=== PATIENT | female | born 1980 | race American Indian/Alaskan Native ===

== ENCOUNTER 2017-02-09 11:20 | Emergency (ER) | payer SELFPAY ==
[2017-02-09] MEDS ORDERED: REGLAN IV ONE (14:05)
[2017-02-09] MEDS ORDERED: DECADRON IV ONE (14:05)
[2017-02-09] MEDS ORDERED: BENADRYL IV ONE (14:05)
[2017-02-09] MEDS ORDERED: TYLENOL PO ONE (14:05)
[2017-02-09] MEDS ORDERED: NACL 0.9% 1000 ML 1,000 ML IV ONE (14:07)
--- NOTE | 2017-02-09 14:12 | Emergency Department Report ---
ED Headache HPI - General Chief Complaint: Headache Stated Complaint: HEADACHE/FOOT PAIN/BLISTERS Time Seen by Provider: 02/09/17 14:04 Source: patient Exam Limitations: no limitations - History of Present Illness Initial Comments: " I have tension headache for 1 week, I have had them for past [address] " Quality: moderate, pressure, sharp Head Injury Location: other (no head injury ) Recent Head Trauma: no recent headache/trauma Modifying Factors: improves with: movement, other (light , noise) Associated Symptoms: other (nausea no vomiting). denies: confusion, fatigue, facial pain, fever/chills, flushing, loss of consciousness, nasal congestion, nasal drainage, numbness in legs/feet, rash, seizures, sinus infection, stiff neck, vision changes, weakness Allergies/Adverse Reactions: Allergies latex Allergy (Verified 02/09/17 12:13) Rash tramadol Allergy (Verified 02/09/17 12:13) Shortness of Breath Home Medications: Ambulatory Orders Fluticasone [Flonase] 1 spray NS QDAY #1 bottle 10/20/16 Ibuprofen [Motrin] 600 mg PO Q8H PRN #15 tablet 10/20/16 Loratadine [Claritin] 10 mg PO DAILY #14 tablet 10/20/16 Nitrofurantoin Baldwin/M-Cryst [Macrobid CAP] 100 mg PO Q12HR #14 capsule 10/20/16 Acetaminophen [Acetaminophen TAB] 1,000 mg PO Q6HR PRN #60 tablet 02/09/17 Metoclopramide [Reglan] 10 mg PO TID PRN #30 tab 02/09/17 diphenhydrAMINE [Benadryl CAP] 25 mg PO Q6HR PRN #30 capsule 02/09/17 ED Review of Systems ROS: Stated complaint: HEADACHE/FOOT PAIN/BLISTERS Other details as noted in HPI Constitutional: denies: chills, fever Eyes: eye pain (bilat eye pain intiated by headache ). denies: eye discharge, vision change ENT: denies: ear pain, throat pain Respiratory: denies: cough, shortness of breath, wheezing Cardiovascular: denies: chest pain, palpitations Endocrine: no symptoms reported Gastrointestinal: nausea. denies: abdominal pain, vomiting, diarrhea, constipation, hematemesis, melena, hematochezia Genitourinary: denies: urgency, dysuria, discharge Musculoskeletal: denies: back pain, joint swelling, arthralgia Skin: denies: rash, lesions Neurological: headache Psychiatric: denies: anxiety, depression, auditory hallucinations, visual hallucinations, homicidal thoughts, suicidal thoughts Hematological/Lymphatic: denies: easy bleeding, easy bruising ED Past Medical Hx - Past Medical History Hx Hypertension: Yes (BORDERLINE) Hx Diabetes: Yes (BORDERLINE) Hx Asthma: Yes Additional medical history: PERICARDITITS 2002/ECZEMA - Surgical History Additional Surgical History: C SECTION. HERNIA X 2 - Social History Smoking Status: Current Every Day Smoker Substance Use Type: Marijuana - Medications Home Medications: Home Medications Medication Instructions Recorded Confirmed Last Taken Type Fluticasone [Flonase] 1 spray NS QDAY #1 bottle 10/20/16 Unknown Rx Ibuprofen [Motrin] 600 mg PO Q8H PRN #15 tablet 10/20/16 Unknown Rx Loratadine [Claritin] 10 mg PO DAILY #14 tablet 10/20/16 Unknown Rx Nitrofurantoin Baldwin/M-Cryst 100 mg PO Q12HR #14 capsule 10/20/16 Unknown Rx [Macrobid CAP] Acetaminophen [Acetaminophen TAB] 1,000 mg PO Q6HR PRN #60 tablet 02/09/17 Unknown Rx Metoclopramide [Reglan] 10 mg PO TID PRN #30 tab 02/09/17 Unknown Rx diphenhydrAMINE [Benadryl CAP] 25 mg PO Q6HR PRN #30 capsule 02/09/17 Unknown Rx ED Physical Exam - General Limitations: No Limitations General appearance: alert, in no apparent distress - Head Head exam: Present: atraumatic, normocephalic, normal inspection - Eye Eye exam: Present: normal appearance, PERRL, EOMI. Absent: scleral icterus, conjunctival injection, nystagmus, periorbital swelling, periorbital tenderness Pupils: Present: normal accommodation - ENT ENT exam: Present: normal exam, mucous membranes moist. Absent: TM's normal bilaterally, normal external ear exam - Neck Neck exam: Present: full ROM. Absent: tenderness, lymphadenopathy, thyromegaly - Respiratory Respiratory exam: Present: normal lung sounds bilaterally. Absent: respiratory distress, wheezes, stridor, chest wall tenderness - Cardiovascular Cardiovascular Exam: Present: regular rate, normal rhythm. Absent: systolic murmur, diastolic murmur, rubs, gallop - GI/Abdominal GI/Abdominal exam: Present: soft, normal bowel sounds - Rectal Rectal exam: Present: deferred - Extremities Exam Extremities exam: Present: normal inspection - Back Exam Back exam: Present: normal inspection - Neurological Exam Neurological exam: Present: alert, oriented X3, CN II-XII intact, normal gait, reflexes normal. Absent: motor sensory deficit - Psychiatric Psychiatric exam: Present: normal affect, normal mood - Skin Skin exam: Present: warm, dry, intact, normal color. Absent: rash ED Course Vital Signs 02/09/17 12:06 Temperature 98.2 F Pulse Rate 97 H Respiratory 17 Rate Blood Pressure 149/95 O2 Sat by Pulse 100 Oximetry - Reevaluation(s) Reevaluation #1: headache improved per patient to 2/10 from 02/26 pt denies n/v no photophobia at this time discussed plan , dc rx tylenol, benadryl and reglan, prn headache , follow up with primary care and neurology if headaches persists pt verbalized understanding and agreement with discharge plan. 02/09/17 15:18 ED Medical Decision Making - Medical Decision Making pt is a aaf with hx of tension headaches for past 11 yrs , usually relieved with nsaids or tylenol pt how ever this headache for past 7 days same location same intensity same associated symptoms or nausea pressure radiating to bilat eyes no change in vision no , note photophobia and noise intelerance as with other headache, pt denies vomiting no fever no chills neck stiffiness , x headache and photophobia CNII-XII grossly intact ENT: tms clear bilat, sinus no pain bilat, nose no obstruction no polyps , pharnyx no erythema no exudate no lesions , airway patent, lungs clear bilat no wheezing no batista, cv: S1 and S2 no MRG, pt denies new stressors, secondary complaint for right foot pain blisters x 1 month exam: mild erythema small blister x 2 less than 1 cm, pt endorses "my shoes rub against them all the time" pt give foot care instructions including wash and dry, antibiotic oint, bandaid or dressing, pt advise to follow up with podiatry for evaluation, Plan for headache: NS bolus, benadryl, tylenol, decadron, reglan, if symptoms resolved will dc with nsaids, reglan and follow up with primary care , pt verbalized agreement and understanding with tx and discharge plan. Critical care attestation.: If time is entered above; I have spent that time in minutes in the direct care of this critically ill patient, excluding procedure time. ED Disposition Clinical Impression: Tension headache, chronic Qualifiers: Intractability: intractable Qualified Code(s): G44.221 - Chronic tension-type headache, intractable Disposition: DC-01 TO HOME OR SELFCARE Is pt being admited?: No Does the pt Need Aspirin: No Condition: Good Instructions: Tension Headache (ED), Acute Headache (ED) Additional Instructions: follow up with Dr. Adam Barcenas [phone] Neurology Prescriptions: Acetaminophen [Acetaminophen TAB] 1,000 mg PO Q6HR PRN #60 tablet PRN Reason: Pain , Severe (7-10) diphenhydrAMINE [Benadryl CAP] 25 mg PO Q6HR PRN #30 capsule PRN Reason: Pain , Severe (7-10) Metoclopramide [Reglan] 10 mg PO TID PRN #30 tab PRN Reason: Pain , Severe (7-10) Referrals: PRIMARY CARE, [Primary Care Provider] - 3-5 Days Forms: Work/School Release Form(ED) Time of Disposition: 15:31
[2017-02-09 16:53] VITALS: BP 117/79
== END 2017-02-09 16:52 | disposition home or self-care (01) ==
LOC: ED 11:20
DX: G44.221 Chronic tension-type headache, intractable (principal); J45.909 Unspecified asthma, uncomplicated; F17.200 Nicotine dependence, unspecified, uncomplicated; F12.10 Cannabis abuse, uncomplicated
CPT/HCPCS: 96367; 96374; 96375; 99283; J1100; J1200; J2765; J7030

== ENCOUNTER 2017-08-21 12:05 | Emergency (ER) | payer OTHER ==
[2017-08-21] MEDS ORDERED: MOTRIN PO ONE (14:55)
[2017-08-21] MEDS ORDERED: TESSALON PERLES PO ONE (14:55)
--- NOTE | 2017-08-21 15:11 | XRay Report ---
ROUTINE CHEST, TWO VIEWS: HISTORY: Cough. The trachea, heart, mediastinal contour, lung field and bony thorax are unremarkable. IMPRESSION: Unremarkable chest x-ray.
--- NOTE | 2017-08-21 15:13 | Emergency Department Report ---
- General Chief Complaint: Upper Respiratory Infection Stated Complaint: FLU LIKE SYMPTOMS Time Seen by Provider: 08/21/17 14:19 Source: patient Mode of arrival: Ambulatory Limitations: No Limitations - History of Present Illness Initial Comments: This is a 37-year-old female nontoxic, well nourished in appearance, no acute signs of distress presents to the ED with c/o of productive cough, subjective fever, chills, rhinorrhea, sore throat, nasal congestion 3 days. Patient describes productive cough as green mucous production. Patient denies any recent travels, long car rides, or recent hospital stays. Patient denies any chest pain, shortness of breath, difficulty breathing, nausea, vomiting, headache, stiff neck, blurry vision, numbness, hemoptysis, tingling, abdominal pain or back pain. Patient denies any calf pain or calf tenderness. Patient states allergies to tramadol and latex. PMH include borderline HTN and DM. Patient stated her PCP did not prescribed her any medications for both as she stated is only diet controlled. MD Complaint: fever, cough, sore throat, rhinorrhea, nasal congestion -: days(s) (3) Severity: mild Severity scale (0 -10): 8 Quality: aching Consistency: constant Improves With: nothing Worsens With: nothing Associated Symptoms: fever, chills, rhinorrhea, nasal congestion, sore throat, cough. denies: myalgias, diaphoresis, headache, stiff neck, chest pain, shortness of breath, abdominal pain, nausea, vomiting, diarrhea, dysuria, rash, confusion, right sweats, weight loss, epistaxis, hoarseness, ear pain Treatments Prior to Arrival: none - Related Data Previous Rx's Medication Instructions Recorded Last Taken Type Fluticasone [Flonase] 1 spray NS QDAY #1 bottle 10/20/16 Unknown Rx Ibuprofen [Motrin] 600 mg PO Q8H PRN #15 tablet 10/20/16 Unknown Rx Loratadine [Claritin] 10 mg PO DAILY #14 tablet 10/20/16 Unknown Rx Nitrofurantoin Hughes/M-Cryst 100 mg PO Q12HR #14 capsule 10/20/16 Unknown Rx [Macrobid CAP] Acetaminophen [Acetaminophen TAB] 1,000 mg PO Q6HR PRN #60 tablet 02/09/17 Unknown Rx Metoclopramide [Reglan] 10 mg PO TID PRN #30 tab 02/09/17 Unknown Rx diphenhydrAMINE [Benadryl CAP] 25 mg PO Q6HR PRN #30 capsule 02/09/17 Unknown Rx Azithromycin [Zithromax Z-RAMESH] 250 mg PO DAILY #6 tablet 08/21/17 Unknown Rx Benzonatate [Tessalon Perle] 100 mg PO Q6H PRN #15 capsule 08/21/17 Unknown Rx Ibuprofen [Motrin] 600 mg PO Q8H PRN #30 tablet 08/21/17 Unknown Rx Allergies Allergy/AdvReac Type Severity Reaction Status Date / Time latex Allergy Rash Verified 02/09/17 12:13 tramadol Allergy Shortness Verified 02/09/17 12:13 of Breath ED Review of Systems ROS: Stated complaint: FLU LIKE SYMPTOMS Other details as noted in HPI Constitutional: chills, fever Eyes: denies: eye pain, eye discharge, vision change ENT: throat pain. denies: ear pain Respiratory: cough. denies: shortness of breath, wheezing Cardiovascular: denies: chest pain, palpitations Endocrine: no symptoms reported Gastrointestinal: denies: abdominal pain, nausea, diarrhea Genitourinary: denies: urgency, dysuria, discharge Musculoskeletal: denies: back pain, joint swelling, arthralgia Skin: denies: rash, lesions Neurological: denies: headache, weakness, paresthesias Psychiatric: denies: anxiety, depression Hematological/Lymphatic: denies: easy bleeding, easy bruising ED Past Medical Hx - Past Medical History Hx Hypertension: Yes (BORDERLINE) Hx Diabetes: Yes (BORDERLINE) Hx Asthma: Yes Additional medical history: PERICARDITITS 2002/ECZEMA - Surgical History Additional Surgical History: C SECTION. HERNIA X 2 - Social History Smoking Status: Current Every Day Smoker Substance Use Type: None - Medications Home Medications: Home Medications Medication Instructions Recorded Confirmed Last Taken Type Fluticasone [Flonase] 1 spray NS QDAY #1 bottle 10/20/16 Unknown Rx Ibuprofen [Motrin] 600 mg PO Q8H PRN #15 tablet 10/20/16 Unknown Rx Loratadine [Claritin] 10 mg PO DAILY #14 tablet 10/20/16 Unknown Rx Nitrofurantoin Hughes/M-Cryst 100 mg PO Q12HR #14 capsule 10/20/16 Unknown Rx [Macrobid CAP] Acetaminophen [Acetaminophen TAB] 1,000 mg PO Q6HR PRN #60 tablet 02/09/17 Unknown Rx Metoclopramide [Reglan] 10 mg PO TID PRN #30 tab 02/09/17 Unknown Rx diphenhydrAMINE [Benadryl CAP] 25 mg PO Q6HR PRN #30 capsule 02/09/17 Unknown Rx Azithromycin [Zithromax Z-RAMESH] 250 mg PO DAILY #6 tablet 08/21/17 Unknown Rx Benzonatate [Tessalon Perle] 100 mg PO Q6H PRN #15 capsule 08/21/17 Unknown Rx Ibuprofen [Motrin] 600 mg PO Q8H PRN #30 tablet 08/21/17 Unknown Rx ED Physical Exam - General Limitations: No Limitations General appearance: alert, in no apparent distress - Head Head exam: Present: atraumatic, normocephalic, normal inspection - Eye Eye exam: Present: normal appearance, PERRL, EOMI. Absent: scleral icterus, conjunctival injection, nystagmus, periorbital swelling, periorbital tenderness Pupils: Present: normal accommodation - ENT ENT exam: Present: mucous membranes moist, TM's normal bilaterally, normal external ear exam - Expanded ENT Exam Expanded Ear exam: Present: normal external inspection Mouth exam: Present: normal external inspection, tongue normal. Absent: drooling, trismus, muffled voice, tongue elevation, laceration Teeth exam: Present: normal inspection Throat exam: Positive: tonsillar erythema, other (Uvula midline. No abscess or swelling noted. ). Negative: tonsillomegaly, tonsillar exudate, R peritonsillar mass, L peritonsillar mass - Neck Neck exam: Present: normal inspection - Respiratory Respiratory exam: Present: normal lung sounds bilaterally. Absent: respiratory distress, wheezes, rales, rhonchi, stridor, chest wall tenderness, accessory muscle use, decreased breath sounds, prolonged expiratory - Cardiovascular Cardiovascular Exam: Present: regular rate, normal rhythm, normal heart sounds. Absent: irregular rhythm, systolic murmur, diastolic murmur, rubs, gallop - GI/Abdominal GI/Abdominal exam: Present: soft, normal bowel sounds. Absent: distended, tenderness, guarding, rebound, rigid, diminished bowel sounds - Rectal Rectal exam: Present: deferred - Extremities Exam Extremities exam: Present: normal inspection, full ROM, normal capillary refill. Absent: tenderness, pedal edema, joint swelling, calf tenderness - Back Exam Back exam: Present: normal inspection, full ROM. Absent: tenderness, CVA tenderness (R), CVA tenderness (L), muscle spasm, paraspinal tenderness, vertebral tenderness, rash noted - Neurological Exam Neurological exam: Present: alert, oriented X3, CN II-XII intact, normal gait, reflexes normal - Psychiatric Psychiatric exam: Present: normal affect, normal mood - Skin Skin exam: Present: warm, dry, intact, normal color. Absent: rash ED Course Vital Signs 08/21/17 12:13 Temperature 99.1 F Pulse Rate 92 H Respiratory 20 Rate Blood Pressure 141/102 O2 Sat by Pulse 100 Oximetry - Reevaluation(s) Reevaluation #1: 08/21/17 15:14 Patient is speaking in full sentences with no signs of distress noted. ED Medical Decision Making - Medical Decision Making This is a 37-year-old male that presents with upper respiratory infection. Patient is stable and was examined by me. Chest x-ray has been obtained and dictated radiologist with unremarkable x-ray. Patient is notified of x-ray results with noted by the patient. Negative influenza swab. I will treat patient empirically with azithromycin due to symptoms worsening and going on for about a week. She also received motrin and Tessalon Perle at discharge. Patient was instructed Follow-up with a primary care doctor in 3-5 days or if symptoms worsen and continue return to emergency room as soon as possible. At time time of discharge, the patient does not seem toxic or ill in appearance. No acute signs of distress noted. Patient agrees to discharge treatment plan of care. No further questions noted by the patient. Wells criteria for PE; 0.6. Unlikely and has a 1.3% incidence of PE Critical care attestation.: If time is entered above; I have spent that time in minutes in the direct care of this critically ill patient, excluding procedure time. ED Disposition Clinical Impression: Upper respiratory infection Qualifiers: URI type: unspecified URI Qualified Code(s): J06.9 - Acute upper respiratory infection, unspecified Disposition: - TO HOME OR SELFCARE Is pt being admited?: No Does the pt Need Aspirin: No Condition: Stable Instructions: Upper Respiratory Infection (ED), Benzonatate (By mouth), Azithromycin (By mouth), Ibuprofen (By mouth) Additional Instructions: Follow-up with a primary care doctor in 3-5 days or if symptoms worsen and continue return to emergency room as soon as possible. Prescriptions: Azithromycin [Zithromax Z-RAMESH] 250 mg PO DAILY #6 tablet Benzonatate [Tessalon Perle] 100 mg PO Q6H PRN #15 capsule PRN Reason: Cough Ibuprofen [Motrin] 600 mg PO Q8H PRN #30 tablet PRN Reason: Pain Referrals: BOOGIE CALLAHAN MD [Primary Care Provider] - 3-5 Days IVIS GEE MD [Staff Physician] - 3-5 Days [facility] [Outside] - 3-5 Days [facility] [Outside] - 3-5 Days PRIMARY CAREMD [Referring] - 3-5 Days Forms: Work/School Release Form(ED)
[2017-08-21 15:51] VITALS: BP 133/83
== END 2017-08-21 15:51 | disposition home or self-care (01) ==
LOC: ED 12:05
DX: J06.9 Acute upper respiratory infection, unspecified (principal); F17.200 Nicotine dependence, unspecified, uncomplicated; Z79.899 Other long term (current) drug therapy; Z91.040 Latex allergy status; Z88.8 Allergy status to other drugs, medicaments and biological substances
CPT/HCPCS: 71046; 87400; 99283

== ENCOUNTER 2018-02-01 19:08 | Emergency (ER) | payer OTHER ==
--- NOTE | 2018-02-01 21:35 | XRay Report ---
FINAL REPORT PROCEDURE: XR HAND 2V RT TECHNIQUE: RIGHT hand radiographs, AP and lateral views. CPT [id number] HISTORY: Right hand pain COMPARISON: No prior studies are available for comparison. FINDINGS: There is minimal deformity midshaft 5th metacarpal. The appearance suggest an old healed fracture. No acute fractures are seen. Joint spaces are well preserved. Bone density appears normal. No abnormal soft tissue calcifications or radiopaque foreign bodies are seen. IMPRESSION: No acute abnormalities are seen. Mild deformity midshaft 5th metacarpal may be related to an old healed fracture. Correlation with prior trauma history recommended
--- NOTE | 2018-02-01 22:21 | Emergency Department Report ---
ED Upper Extremity Inj HPI - General Chief Complaint: Extremity Injury, Upper Stated Complaint: RIGHT ARM PAIN Time Seen by Provider: 02/01/18 22:09 Source: patient Mode of arrival: Ambulatory Limitations: No Limitations - History of Present Illness Initial Comments: Patient is a 37-year-old [employer] with history of carpal tunnel and right hand fracture who presents for right forearm pain for 1 week patient states overuse injury moving heavy patient's states 4-510 pain aching radiating from right elbow to her right thumb and index finger with tingling burning exacerbated by heavy lifting rotation pronation intermittent tingling patient denies new fall or trauma, pain level 5/10 exacerbated by overuse relieved by rest and splinting patient uses carpal tunnel wrist cock-up splint from previous injury was followed by I, however not currently seeing ortho. Complaint: Injury to:: right Onset/Timin -: week(s) Other Extremity Injury: Forearm: Right Other Injuries: none Handedness: right Place: work Severity scale (0 -10): 4 Improves With: movement Worsens With: movement of extremity Context: other (overuse ) Associated Symptoms: other (pain) - Related Data Previous Rx's Medication Instructions Recorded Last Taken Type Fluticasone [Flonase] 1 spray NS QDAY #1 bottle 10/20/16 Unknown Rx Ibuprofen [Motrin] 600 mg PO Q8H PRN #15 tablet 10/20/16 Unknown Rx Loratadine [Claritin] 10 mg PO DAILY #14 tablet 10/20/16 Unknown Rx Nitrofurantoin [place]/M-Cryst 100 mg PO Q12HR #14 capsule 10/20/16 Unknown Rx [Macrobid CAP] Acetaminophen [Acetaminophen TAB] 1,000 mg PO Q6HR PRN #60 tablet 02/09/17 Unknown Rx Metoclopramide [Reglan] 10 mg PO TID PRN #30 tab 02/09/17 Unknown Rx diphenhydrAMINE [Benadryl CAP] 25 mg PO Q6HR PRN #30 capsule 02/09/17 Unknown Rx Azithromycin [Zithromax Z-RAMESH] 250 mg PO DAILY #6 tablet 08/21/17 Unknown Rx Benzonatate [Tessalon Perle] 100 mg PO Q6H PRN #15 capsule 08/21/17 Unknown Rx Ibuprofen [Motrin] 600 mg PO Q8H PRN #30 tablet 08/21/17 Unknown Rx Cyclobenzaprine [Flexeril] 10 mg PO BID PRN #20 tablet 02/01/18 Unknown Rx Menthol/Camphor [[place] 1 applic TP TID PRN #1 tube 02/01/18 Unknown Rx Ointment] Naproxen [Naprosyn] 500 mg PO BID PRN #30 tablet 02/01/18 Unknown Rx Allergies Allergy/AdvReac Type Severity Reaction Status Date / Time latex Allergy Rash Verified 02/09/17 12:13 tramadol Allergy Shortness Verified 02/09/17 12:13 of Breath ED Review of Systems ROS: Stated complaint: RIGHT ARM PAIN Other details as noted in HPI Constitutional: denies: chills, fever Eyes: denies: eye pain, eye discharge, vision change ENT: denies: ear pain, throat pain Respiratory: denies: cough, shortness of breath, wheezing Cardiovascular: denies: chest pain, palpitations Endocrine: no symptoms reported Gastrointestinal: denies: abdominal pain, nausea, diarrhea Genitourinary: denies: urgency, dysuria, discharge Musculoskeletal: arthralgia, myalgia Skin: denies: rash, lesions Neurological: denies: headache, weakness, numbness, paresthesias, confusion, vertigo Psychiatric: denies: anxiety, depression Hematological/Lymphatic: denies: easy bleeding, easy bruising ED Past Medical Hx - Past Medical History Hx Hypertension: Yes (BORDERLINE) Hx Diabetes: Yes (BORDERLINE) Hx Asthma: Yes Additional medical history: PERICARDITITS 2002/ECZEMA, Carpal Tunnel Syndrome - Surgical History Additional Surgical History: C SECTION. HERNIA X 2 - Social History Smoking Status: Current Every Day Smoker Substance Use Type: None - Medications Home Medications: Home Medications Medication Instructions Recorded Confirmed Last Taken Type Fluticasone [Flonase] 1 spray NS QDAY #1 bottle 10/20/16 Unknown Rx Ibuprofen [Motrin] 600 mg PO Q8H PRN #15 tablet 10/20/16 Unknown Rx Loratadine [Claritin] 10 mg PO DAILY #14 tablet 10/20/16 Unknown Rx Nitrofurantoin [place]/M-Cryst 100 mg PO Q12HR #14 capsule 10/20/16 Unknown Rx [Macrobid CAP] Acetaminophen [Acetaminophen TAB] 1,000 mg PO Q6HR PRN #60 tablet 02/09/17 Unknown Rx Metoclopramide [Reglan] 10 mg PO TID PRN #30 tab 02/09/17 Unknown Rx diphenhydrAMINE [Benadryl CAP] 25 mg PO Q6HR PRN #30 capsule 02/09/17 Unknown Rx Azithromycin [Zithromax Z-RAMESH] 250 mg PO DAILY #6 tablet 08/21/17 Unknown Rx Benzonatate [Tessalon Perle] 100 mg PO Q6H PRN #15 capsule 08/21/17 Unknown Rx Ibuprofen [Motrin] 600 mg PO Q8H PRN #30 tablet 08/21/17 Unknown Rx Cyclobenzaprine [Flexeril] 10 mg PO BID PRN #20 tablet 02/01/18 Unknown Rx Menthol/Camphor [[place] 1 applic TP TID PRN #1 tube 02/01/18 Unknown Rx Ointment] Naproxen [Naprosyn] 500 mg PO BID PRN #30 tablet 02/01/18 Unknown Rx ED Physical Exam - General Limitations: No Limitations General appearance: alert, in no apparent distress - Head Head exam: Present: atraumatic, normocephalic - Eye Eye exam: Present: normal appearance - ENT ENT exam: Present: mucous membranes moist - Neck Neck exam: Present: normal inspection, full ROM. Absent: lymphadenopathy, thyromegaly - Respiratory Respiratory exam: Present: normal lung sounds bilaterally. Absent: respiratory distress - Cardiovascular Cardiovascular Exam: Present: regular rate, normal rhythm. Absent: systolic murmur, diastolic murmur, rubs, gallop - GI/Abdominal GI/Abdominal exam: Present: soft, normal bowel sounds - Rectal Rectal exam: Present: deferred - Extremities Exam Extremities exam: Present: full ROM, tenderness (right forearm right elbow ), normal capillary refill. Absent: pedal edema, joint swelling, calf tenderness - Expanded Upper Extremity Exam Right Shoulder Exam: Present: normal inspection, full ROM Upper Arm exam: Present: normal inspection, full ROM Elbow exam: Present: full ROM, tenderness (right radial head ), pain w/ pronation/supination, tenderness over radial head. Absent: swelling, abrasion, laceration, ecchymosis, deformity, crepidus, dislocation, erythema, effusion Forearm Wrist exam: Present: full ROM, tenderness (right lateral forearm tenderness to deep palpation ). Absent: swelling, abrasion, laceration, ecchymosis, deformity, crepidus, dislocation, erythema, tenderness over anatomical snuff box, pain with axial thumb loading Hand Wrist exam: Present: normal inspection, full ROM. Absent: tenderness, swelling, abrasion, laceration, ecchymosis, deformity, crepidus, dislocation, erythema, amputation, nail avulsion, subungual hematoma Neuro motor exam: Present: wrist extension intact, thumb opposition intact, thumb IP flexion intact, thumb adduction intact, fingers 2-5 abduction intact Neurosensory exam: Present: 2-point discrimination, radial nerve intact, ulnar nerve intact, median nerve intact Vascular: Present: normal capillary refill, radial pulse, brachial pulse, ulnar pulse. Absent: vascular compromise, Pallo, pulse deficit radial art, pulse deficit ulnar art, pulse deficit brachial art - Back Exam Back exam: Present: normal inspection, full ROM. Absent: tenderness, CVA tenderness (R), CVA tenderness (L), muscle spasm, paraspinal tenderness, vertebral tenderness, rash noted - Neurological Exam Neurological exam: Present: alert, oriented X3, CN II-XII intact, normal gait, reflexes normal. Absent: motor sensory deficit - Psychiatric Psychiatric exam: Present: normal affect, normal mood - Skin Skin exam: Present: warm, dry, intact, normal color. Absent: rash ED Course Vital Signs 02/01/18 20:48 Temperature 98.6 F Pulse Rate 72 Respiratory 18 Rate Blood Pressure 134/76 O2 Sat by Pulse 100 Oximetry ED Medical Decision Making - Radiology Data Radiology results: report reviewed (is), image reviewed Right hand x-ray previous fracture no acute fracture no acute soft tissue deformity - Medical Decision Making This is overuse injury tennis elbow plan [place] wrap NSAIDs muscle relaxants former exercises Rice therapy continues wrist cock-up splint follow-up [facility] 2-3 days patient verbalizes understanding and agreement with discharge plan DC'd to home in stable condition at this time. Critical care attestation.: If time is entered above; I have spent that time in minutes in the direct care of this critically ill patient, excluding procedure time. ED Disposition Clinical Impression: Overuse injury Tennis elbow syndrome Qualifiers: Laterality: right Qualified Code(s): M77.11 - Lateral epicondylitis, right elbow Disposition: DC- TO HOME OR SELFCARE Is pt being admited?: No Does the pt Need Aspirin: No Condition: Good Instructions: Tennis Elbow (ED) Prescriptions: Cyclobenzaprine [Flexeril] 10 mg PO BID PRN #20 tablet PRN Reason: Muscle Spasm Menthol/Camphor [Gunlock Mcgrath Ointment] 1 applic TP TID PRN #1 tube PRN Reason: pain Naproxen [Naprosyn] 500 mg PO BID PRN #30 tablet PRN Reason: Pain Referrals: PRIMARY CARE, [Primary Care Provider] - 3-5 Days Forms: Work/School Release Form(ED) Time of Disposition: 22:42
[2018-02-01] MEDS ORDERED: MOTRIN PO ONE (22:42)
[2018-02-01 23:32] VITALS: BP 131/74
== END 2018-02-01 23:02 | disposition home or self-care (01) ==
LOC: ED 19:08
DX: M77.11 Lateral epicondylitis, right elbow (principal); M70.831 Other soft tissue disorders related to use, overuse and pressure, right forearm; I10 Essential (primary) hypertension; E11.9 Type 2 diabetes mellitus without complications; J45.909 Unspecified asthma, uncomplicated; F17.200 Nicotine dependence, unspecified, uncomplicated; G56.01 Carpal tunnel syndrome, right upper limb; Z91.040 Latex allergy status; Z88.6 Allergy status to analgesic agent

== ENCOUNTER 2018-08-21 11:53 | Emergency (ER) | payer SELFPAY ==
--- NOTE | 2018-08-21 12:41 | Emergency Department Report ---
ED General Adult HPI - General Chief complaint: Skin/Abscess/Foreign Body Stated complaint: LT BREAST PAIN AND DISCHARGE Time Seen by Provider: 08/21/18 12:28 Source: patient Mode of arrival: Ambulatory Limitations: No Limitations - History of Present Illness Initial comments: Patient is a 38-year-old female states that for the past 2-3 days she's had some left breast pain. Pain is at the 6 o'clock position of the breast. Patient noticed some clear discharge from the nipple as well. He states that pain is aching in nature as 7 out of 10 in severity. Her ears worse when she tries to palpate this area. - Related Data Previous Rx's Medication Instructions Recorded Last Taken Type Fluticasone [Flonase] 1 spray NS QDAY #1 bottle 10/20/16 Unknown Rx Ibuprofen [Motrin] 600 mg PO Q8H PRN #15 tablet 10/20/16 Unknown Rx Loratadine [Claritin] 10 mg PO DAILY #14 tablet 10/20/16 Unknown Rx Nitrofurantoin [place]/M-Cryst 100 mg PO Q12HR #14 capsule 10/20/16 Unknown Rx [Macrobid CAP] Acetaminophen [Acetaminophen TAB] 1,000 mg PO Q6HR PRN #60 tablet 02/09/17 Unknown Rx Metoclopramide [Reglan] 10 mg PO TID PRN #30 tab 02/09/17 Unknown Rx diphenhydrAMINE [Benadryl CAP] 25 mg PO Q6HR PRN #30 capsule 02/09/17 Unknown Rx Azithromycin [Zithromax Z-RAMESH] 250 mg PO DAILY #6 tablet 08/21/17 Unknown Rx Benzonatate [Tessalon Perle] 100 mg PO Q6H PRN #15 capsule 08/21/17 Unknown Rx Ibuprofen [Motrin] 600 mg PO Q8H PRN #30 tablet 08/21/17 Unknown Rx Cyclobenzaprine [Flexeril] 10 mg PO BID PRN #20 tablet 02/01/18 Unknown Rx Menthol/Camphor [[place] 1 applic TP TID PRN #1 tube 02/01/18 Unknown Rx Ointment] Naproxen [Naprosyn] 500 mg PO BID PRN #30 tablet 02/01/18 Unknown Rx Clindamycin [Clindamycin CAP] 300 mg PO Q8H 7 Days cap 08/21/18 Unknown Rx HYDROcodone/APAP 5-325 [[place] 1 each PO Q4HR PRN #12 tablet 08/21/18 Unknown Rx 5/325] Ibuprofen [Motrin] 600 mg PO Q8H PRN #20 tablet 08/21/18 Unknown Rx Allergies Allergy/AdvReac Type Severity Reaction Status Date / Time latex Allergy Rash Verified 02/09/17 12:13 tramadol Allergy Shortness Verified 02/09/17 12:13 of Breath ED Review of Systems ROS: Stated complaint: LT BREAST PAIN AND DISCHARGE Other details as noted in HPI Comment: All other systems reviewed and negative ED Past Medical Hx - Past Medical History Hx Hypertension: Yes (BORDERLINE) Hx Diabetes: Yes (BORDERLINE) Hx Asthma: Yes Additional medical history: PERICARDITITS 2002/ECZEMA, Carpal Tunnel Syndrome - Surgical History Additional Surgical History: C SECTION. HERNIA X 2 - Social History Smoking Status: Current Every Day Smoker Substance Use Type: None - Medications Home Medications: Home Medications Medication Instructions Recorded Confirmed Last Taken Type Fluticasone [Flonase] 1 spray NS QDAY #1 bottle 10/20/16 Unknown Rx Ibuprofen [Motrin] 600 mg PO Q8H PRN #15 tablet 10/20/16 Unknown Rx Loratadine [Claritin] 10 mg PO DAILY #14 tablet 10/20/16 Unknown Rx Nitrofurantoin [place]/M-Cryst 100 mg PO Q12HR #14 capsule 10/20/16 Unknown Rx [Macrobid CAP] Acetaminophen [Acetaminophen TAB] 1,000 mg PO Q6HR PRN #60 tablet 02/09/17 Unknown Rx Metoclopramide [Reglan] 10 mg PO TID PRN #30 tab 02/09/17 Unknown Rx diphenhydrAMINE [Benadryl CAP] 25 mg PO Q6HR PRN #30 capsule 02/09/17 Unknown Rx Azithromycin [Zithromax Z-RAMESH] 250 mg PO DAILY #6 tablet 08/21/17 Unknown Rx Benzonatate [Tessalon Perle] 100 mg PO Q6H PRN #15 capsule 08/21/17 Unknown Rx Ibuprofen [Motrin] 600 mg PO Q8H PRN #30 tablet 08/21/17 Unknown Rx Cyclobenzaprine [Flexeril] 10 mg PO BID PRN #20 tablet 02/01/18 Unknown Rx Menthol/Camphor [[place] 1 applic TP TID PRN #1 tube 02/01/18 Unknown Rx Ointment] Naproxen [Naprosyn] 500 mg PO BID PRN #30 tablet 02/01/18 Unknown Rx Clindamycin [Clindamycin CAP] 300 mg PO Q8H 7 Days cap 08/21/18 Unknown Rx HYDROcodone/APAP 5-325 [[place] 1 each PO Q4HR PRN #12 tablet 08/21/18 Unknown Rx 5/325] Ibuprofen [Motrin] 600 mg PO Q8H PRN #20 tablet 08/21/18 Unknown Rx ED Physical Exam - General Limitations: No Limitations General appearance: alert, in no apparent distress - Head Head exam: Present: atraumatic, normocephalic - Eye Eye exam: Present: normal appearance - ENT ENT exam: Present: mucous membranes moist - Neck Neck exam: Present: normal inspection - Respiratory Respiratory exam: Present: normal lung sounds bilaterally, chest wall tenderness (patient has tenderness palpation to the left breast at the 6 o'clock position. There is some nodularity in this area. There is no active discharge or bleeding from the nipple. There is no overlying erythema or warmth.). Absent: respiratory distress - Cardiovascular Cardiovascular Exam: Present: regular rate, normal rhythm. Absent: systolic murmur, diastolic murmur, rubs, gallop - GI/Abdominal GI/Abdominal exam: Present: soft, normal bowel sounds. Absent: distended, tenderness, guarding, rebound - Extremities Exam Extremities exam: Present: normal inspection - Back Exam Back exam: Present: normal inspection - Neurological Exam Neurological exam: Present: alert, oriented X3 - Psychiatric Psychiatric exam: Present: normal affect, normal mood - Skin Skin exam: Present: warm, dry, intact, normal color. Absent: rash ED Course Vital Signs 08/21/18 11:55 Temperature 98.4 F Pulse Rate 88 Respiratory 18 Rate Blood Pressure 146/106 O2 Sat by Pulse 99 Oximetry ED Medical Decision Making - Medical Decision Making Patient is a 2-year-old female assessed left breast pain for several days. From the emergency Department were unable to rule out the possibility of neoplasm benign tumor. Patient also could've have some duct obstruction causing pain. Patient will be started on clindamycin to cover for possible mastitis as well as pain management the patient be discharged home with follow-up with Dr. Teixeira our breast surgeon. Critical care attestation.: If time is entered above; I have spent that time in minutes in the direct care of this critically ill patient, excluding procedure time. ED Disposition Clinical Impression: Breast pain in female Disposition: - TO HOME OR SELFCARE Is pt being admited?: No Does the pt Need Aspirin: No Condition: Stable Instructions: Mastitis (ED), Breast Self-exam (ED), Mammogram (ED) Referrals: PRIMARY CAREMD [Primary Care Provider] - 3-5 Days MADDI TEIXEIRA MD [Staff Physician] - 3-5 Days Time of Disposition: 12:41
== END 2018-08-21 12:51 | disposition home or self-care (01) ==
LOC: ED 11:53
CPT/HCPCS: 99282

== ENCOUNTER 2019-01-08 07:08 | Emergency (ER) | payer OTHER ==
[2019-01-08 07:16] VITALS: BP 129/93
[2019-01-08 07:36] LABS: Bacteria,Urine 2+ /HPF (Negative); Bilirubin,Urine NEG (Negative); Blood,Urine LG (Negative); Color,Urine Yellow (Yellow)
[2019-01-08 07:37] LABS: RBC,Urine > 182.0 /HPF (0.0-6.0)
[2019-01-08 07:57] LABS: Basophils # (Auto) 0.1 K/mm3 (0.0-0.1); Basophils % (Auto) 1.5 % (0.0-1.8); Eosinophils # (Auto) 0.2 K/mm3 (0.0-0.4); Eosinophils % (Auto) 2.8 % (0.0-4.3); Hematocrit 38.1 % (30.3-42.9); Hemoglobin 12.4 gm/dl (10.1-14.3); Lymphocytes # (Auto) 3.3 K/mm3 (1.2-5.4); Lymphocytes % (Auto) 45.9 % (13.4-35.0); Mean Corpuscular HGB Conc 33 % (30-34); Mean Corpuscular Volume 79 fl (79-97); Monocytes # (Auto) 0.7 K/mm3 (0.0-0.8); Monocytes % (Auto) 10.3 % (0.0-7.3); Platelet Count 362 K/mm3 (140-440); Red Blood Count 4.83 M/mm3 (3.65-5.03); Red Cell Distribution Width 15.5 % (13.2-15.2)
[2019-01-08 08:29] LABS: Alanine Aminotransferase 10 units/L (7-56); BUN/Creatinine Ratio 17; Blood Urea Nitrogen 10 mg/dL (7-17); Calcium 8.8 mg/dL (8.4-10.2); Hemolysis Index 5
--- NOTE | 2019-01-08 09:34 | Emergency Department Report ---
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 Patient reports that the patient that she is taking care of also had diarrhea. Patient denies taking anything [id number] for her symptoms. MD complaint: nausea, vomiting, diarrhea, abdominal pain -: days(s) (2) Description of Diarrhea: water Associated Abdominal Pain: Yes Location: diffuse Radiation: none Severity: mild Quality: cramping Consistency: intermittent Improves with: none Worsens with: eating Context: sick contacts Associated Symptoms: denies: fever/chills - Related Data Previous Rx's Medication Instructions Recorded Last Taken Type Fluticasone [Flonase] 1 spray NS QDAY #1 bottle 10/20/16 Unknown Rx Ibuprofen [Motrin] 600 mg PO Q8H PRN #15 tablet 10/20/16 Unknown Rx Loratadine [Claritin] 10 mg PO DAILY #14 tablet 10/20/16 Unknown Rx Nitrofurantoin [place]/M-Cryst 100 mg PO Q12HR #14 capsule 10/20/16 Unknown Rx [Macrobid CAP] Acetaminophen [Acetaminophen TAB] 1,000 mg PO Q6HR PRN #60 tablet 02/09/17 Unknown Rx Metoclopramide [Reglan] 10 mg PO TID PRN #30 tab 02/09/17 Unknown Rx diphenhydrAMINE [Benadryl CAP] 25 mg PO Q6HR PRN #30 capsule 02/09/17 Unknown Rx Azithromycin [Zithromax Z-RAMESH] 250 mg PO DAILY #6 tablet 08/21/17 Unknown Rx Benzonatate [Tessalon Perle] 100 mg PO Q6H PRN #15 capsule 08/21/17 Unknown Rx Ibuprofen [Motrin] 600 mg PO Q8H PRN #30 tablet 08/21/17 Unknown Rx Cyclobenzaprine [Flexeril] 10 mg PO BID PRN #20 tablet 02/01/18 Unknown Rx Menthol/Camphor [[place] 1 applic TP TID PRN #1 tube 02/01/18 Unknown Rx Ointment] Naproxen [Naprosyn] 500 mg PO BID PRN #30 tablet 02/01/18 Unknown Rx Clindamycin [Clindamycin CAP] 300 mg PO Q8H 7 Days cap 08/21/18 Unknown Rx HYDROcodone/APAP 5-325 [[place] 1 each PO Q4HR PRN #12 tablet 08/21/18 Unknown Rx 5/325] Ibuprofen [Motrin] 600 mg PO Q8H PRN #20 tablet 08/21/18 Unknown Rx Ondansetron [Zofran Odt] 4 mg PO Q8HR PRN #20 tab.rapdis 01/08/19 Unknown Rx Sulfamethoxazole/Trimethoprim 1 each PO BID #6 tablet 01/08/19 Unknown Rx [Bactrim DS TAB] Allergies Allergy/AdvReac Type Severity Reaction Status Date / Time latex Allergy Rash Verified 02/09/17 12:13 tramadol Allergy Shortness Verified 02/09/17 12:13 of Breath ED Review of Systems ROS: Stated complaint: STOMACH PAIN/VOMITTING Other details as noted in HPI Comment: All other systems reviewed and negative Constitutional: denies: chills, fever Gastrointestinal: abdominal pain, nausea, vomiting, diarrhea Genitourinary: denies: dysuria, frequency ED Past Medical Hx - Past Medical History Previous Medical History?: Yes Hx Hypertension: Yes (BORDERLINE) Hx Diabetes: Yes (BORDERLINE) Hx Asthma: Yes Additional medical history: PERICARDITITS 2002/ECZEMA, Carpal Tunnel Syndrome - Surgical History Past Surgical History?: Yes Additional Surgical History: C SECTION. HERNIA X 2 - Social History Smoking Status: Current Every Day Smoker Substance Use Type: None - Medications Home Medications: Home Medications Medication Instructions Recorded Confirmed Last Taken Type Fluticasone [Flonase] 1 spray NS QDAY #1 bottle 10/20/16 Unknown Rx Ibuprofen [Motrin] 600 mg PO Q8H PRN #15 tablet 10/20/16 Unknown Rx Loratadine [Claritin] 10 mg PO DAILY #14 tablet 10/20/16 Unknown Rx Nitrofurantoin [place]/M-Cryst 100 mg PO Q12HR #14 capsule 10/20/16 Unknown Rx [Macrobid CAP] Acetaminophen [Acetaminophen TAB] 1,000 mg PO Q6HR PRN #60 tablet 02/09/17 Unknown Rx Metoclopramide [Reglan] 10 mg PO TID PRN #30 tab 02/09/17 Unknown Rx diphenhydrAMINE [Benadryl CAP] 25 mg PO Q6HR PRN #30 capsule 02/09/17 Unknown Rx Azithromycin [Zithromax Z-RAMESH] 250 mg PO DAILY #6 tablet 08/21/17 Unknown Rx Benzonatate [Tessalon Perle] 100 mg PO Q6H PRN #15 capsule 08/21/17 Unknown Rx Ibuprofen [Motrin] 600 mg PO Q8H PRN #30 tablet 08/21/17 Unknown Rx Cyclobenzaprine [Flexeril] 10 mg PO BID PRN #20 tablet 02/01/18 Unknown Rx Menthol/Camphor [[place] 1 applic TP TID PRN #1 tube 02/01/18 Unknown Rx Ointment] Naproxen [Naprosyn] 500 mg PO BID PRN #30 tablet 02/01/18 Unknown Rx Clindamycin [Clindamycin CAP] 300 mg PO Q8H 7 Days cap 08/21/18 Unknown Rx HYDROcodone/APAP 5-325 [[place] 1 each PO Q4HR PRN #12 tablet 08/21/18 Unknown Rx 5/325] Ibuprofen [Motrin] 600 mg PO Q8H PRN #20 tablet 08/21/18 Unknown Rx Ondansetron [Zofran Odt] 4 mg PO Q8HR PRN #20 tab.rapdis 01/08/19 Unknown Rx Sulfamethoxazole/Trimethoprim 1 each PO BID #6 tablet 01/08/19 Unknown Rx [Bactrim DS TAB] ED Physical Exam - General Limitations: No Limitations General appearance: alert, in no apparent distress - Head Head exam: Present: atraumatic, normocephalic - Eye Eye exam: Present: normal appearance - ENT ENT exam: Present: mucous membranes moist - Neck Neck exam: Present: normal inspection - Respiratory Respiratory exam: Present: normal lung sounds bilaterally. Absent: respiratory distress - Cardiovascular Cardiovascular Exam: Present: regular rate, normal rhythm - GI/Abdominal GI/Abdominal exam: Present: soft. Absent: distended, tenderness - Extremities Exam Extremities exam: Present: normal inspection - Neurological Exam Neurological exam: Present: alert, oriented X3, CN II-XII intact. Absent: motor sensory deficit - Psychiatric Psychiatric exam: Present: normal affect, normal mood - Skin Skin exam: Present: warm, dry, intact, normal color. Absent: rash ED Course Vital Signs 01/08/19 07:15 Temperature 98.0 F Pulse Rate 92 H Respiratory 16 Rate Blood Pressure 129/93 O2 Sat by Pulse 100 Oximetry ED Medical Decision Making - Lab Data Result diagrams: 01/08/19 07:37 01/08/19 07:37 - Medical Decision Making - gastroenteritis - UA shows UTI; epithelial cells present but also positive nitrates and leuk est; will treat - bactrim and zofran - advised imodium OTC - Differential Diagnosis gastroenteritis, UTI, pancreatitis Critical care attestation.: If time is entered above; I have spent that time in minutes in the direct care of this critically ill patient, excluding procedure time. ED Disposition Clinical Impression: Gastroenteritis, UTI (urinary tract infection) Disposition: TO HOME OR SELFCARE Is pt being admited?: No Condition: Stable Instructions: Urinary Tract Infection in Women (ED), Gastroenteritis (ED) Prescriptions: Sulfamethoxazole/Trimethoprim [Bactrim DS TAB] 1 each PO BID #6 tablet Ondansetron [Zofran Odt] 4 mg PO Q8HR PRN #20 tab.rapdis PRN Reason: Vomiting Referrals: EVARISTO CACERESSTERLING MD MARCO [Primary Care Provider] - 3-5 Days Time of Disposition: 09:36
== END 2019-01-08 10:08 | disposition home or self-care (01) ==
LOC: ED 07:08
DX: K52.9 Noninfective gastroenteritis and colitis, unspecified (principal); N39.0 Urinary tract infection, site not specified; F17.200 Nicotine dependence, unspecified, uncomplicated; J45.909 Unspecified asthma, uncomplicated; E11.9 Type 2 diabetes mellitus without complications; I10 Essential (primary) hypertension; Z88.5 Allergy status to narcotic agent; Z91.040 Latex allergy status
CPT/HCPCS: 36415; 80053; 81001; 84703; 85025; 99283

== ENCOUNTER 2019-01-29 13:33 | Emergency (ER) | payer SELFPAY ==
--- NOTE | 2019-01-29 13:49 | Emergency Department Report ---
Blank Doc - Documentation Documentation: This is a 38-year-old female that presents with acute on chornic intermittnet migrane headaches. Stated pain is similar to the past. Denies any head injuries to trauma. Exam: neuro exam within normal limits. This initial assessment/diagnostic orders/clinical plan/treatment(s) is/are subject to change based on patient's health status, clinical progression and re- assessment by fellow clinical providers in the ED. Further treatment and workup at subsequent clinical providers discretion. Patient/guardians urged not to elope from the ED as their condition may be serious if not clinically assessed and managed. Initial orders include: 1- Patient sent to [facility] for further evaluation and treatment
[2019-01-29 13:54] VITALS: BP 154/99
[2019-01-29] MEDS ORDERED: MORPHINE IV ONE (14:41)
[2019-01-29] MEDS ORDERED: ZOFRAN IV ONE (14:41)
[2019-01-29] MEDS ORDERED: NACL 0.9% 1000 ML 1,000 ML IV ONE (14:41)
[2019-01-29] MEDS ORDERED: TORADOL IV ONE (14:41)
--- NOTE | 2019-01-29 16:22 | Emergency Department Report ---
ED Headache HPI - General Chief Complaint: High BP Stated Complaint: MIGRAINE Time Seen by Provider: 01/29/19 13:46 - History of Present Illness Initial Comments: Patient is a 38-year-old female with past medical history of hypertension and migraines who presented with a headache. Patient states while at work earlier today she developed a headache that was a bandlike sensation across the forehead and the back of the neck with radiation down to the posterior neck and shoulders. Patient states this is consistent with migraines since she's had in the past. Patient took a 0.1 mg clonidine Norvasc 5 mg prior to arrival. Patient states these were given to her. Patient is not on any blood pressure medicines at this time. Patient's initial blood pressure while at work was 169/116. There is decrease as she is a right however headache still present. Patient states she has photophobia and nausea secondary to migraine. Patient is denying any neck stiffness or fevers or chills actual vomiting or diarrhea at this time. Headache is 9 out of 10 in severity. Allergies/Adverse Reactions: Allergies latex Allergy (Verified 02/09/17 12:13) Rash tramadol Allergy (Verified 02/09/17 12:13) Shortness of Breath Home Medications: Ambulatory Orders Fluticasone [Flonase] 1 spray NS QDAY #1 bottle 10/20/16 Ibuprofen [Motrin] 600 mg PO Q8H PRN #15 tablet 10/20/16 Loratadine [Claritin] 10 mg PO DAILY #14 tablet 10/20/16 Nitrofurantoin [place]/M-Cryst [Macrobid CAP] 100 mg PO Q12HR #14 capsule 10/20/16 Acetaminophen [Acetaminophen TAB] 1,000 mg PO Q6HR PRN #60 tablet 02/09/17 Metoclopramide [Reglan] 10 mg PO TID PRN #30 tab 02/09/17 diphenhydrAMINE [Benadryl CAP] 25 mg PO Q6HR PRN #30 capsule 02/09/17 Azithromycin [Zithromax Z-RAMESH] 250 mg PO DAILY #6 tablet 08/21/17 Benzonatate [Tessalon Perle] 100 mg PO Q6H PRN #15 capsule 08/21/17 Ibuprofen [Motrin] 600 mg PO Q8H PRN #30 tablet 08/21/17 Cyclobenzaprine [Flexeril] 10 mg PO BID PRN #20 tablet 02/01/18 Menthol/Camphor [[place] Ointment] 1 applic TP TID PRN #1 tube 02/01/18 Naproxen [Naprosyn] 500 mg PO BID PRN #30 tablet 02/01/18 Clindamycin [Clindamycin CAP] 300 mg PO Q8H 7 Days cap 08/21/18 HYDROcodone/APAP 5-325 [[place] 5/325] 1 each PO Q4HR PRN #12 tablet 08/21/18 Ibuprofen [Motrin] 600 mg PO Q8H PRN #20 tablet 08/21/18 Ondansetron [Zofran Odt] 4 mg PO Q8HR PRN #20 tab.rapdis 01/08/19 Sulfamethoxazole/Trimethoprim [Bactrim DS TAB] 1 each PO BID #6 tablet 01/08/19 Amlodipine Besylate [Norvasc] 5 mg PO DAILY #30 tablet 01/29/19 Ketorolac [Toradol] 10 mg PO Q6H PRN #12 tablet 01/29/19 Ketorolac [Toradol] 10 mg PO Q6H PRN #12 tablet 01/29/19 Ondansetron [Zofran Odt] 4 mg PO Q8HR #10 tab.rapdis 01/29/19 ED Review of Systems ROS: Stated complaint: MIGRAINE Other details as noted in HPI Comment: All other systems reviewed and negative ED Past Medical Hx - Past Medical History Hx Hypertension: Yes (BORDERLINE) Hx Diabetes: Yes (BORDERLINE) Hx Asthma: Yes Additional medical history: PERICARDITITS 2002/ECZEMA, Carpal Tunnel Syndrome - Surgical History Past Surgical History?: Yes Additional Surgical History: C SECTION. HERNIA X 2 - Social History Smoking Status: Current Every Day Smoker Substance Use Type: None - Medications Home Medications: Home Medications Medication Instructions Recorded Confirmed Last Taken Type Fluticasone [Flonase] 1 spray NS QDAY #1 bottle 10/20/16 Unknown Rx Ibuprofen [Motrin] 600 mg PO Q8H PRN #15 tablet 10/20/16 Unknown Rx Loratadine [Claritin] 10 mg PO DAILY #14 tablet 10/20/16 Unknown Rx Nitrofurantoin [place]/M-Cryst 100 mg PO Q12HR #14 capsule 10/20/16 Unknown Rx [Macrobid CAP] Acetaminophen [Acetaminophen TAB] 1,000 mg PO Q6HR PRN #60 tablet 02/09/17 Unknown Rx Metoclopramide [Reglan] 10 mg PO TID PRN #30 tab 02/09/17 Unknown Rx diphenhydrAMINE [Benadryl CAP] 25 mg PO Q6HR PRN #30 capsule 02/09/17 Unknown Rx Azithromycin [Zithromax Z-RAMESH] 250 mg PO DAILY #6 tablet 08/21/17 Unknown Rx Benzonatate [Tessalon Perle] 100 mg PO Q6H PRN #15 capsule 08/21/17 Unknown Rx Ibuprofen [Motrin] 600 mg PO Q8H PRN #30 tablet 08/21/17 Unknown Rx Cyclobenzaprine [Flexeril] 10 mg PO BID PRN #20 tablet 02/01/18 Unknown Rx Menthol/Camphor [[place] 1 applic TP TID PRN #1 tube 02/01/18 Unknown Rx Ointment] Naproxen [Naprosyn] 500 mg PO BID PRN #30 tablet 02/01/18 Unknown Rx Clindamycin [Clindamycin CAP] 300 mg PO Q8H 7 Days cap 08/21/18 Unknown Rx HYDROcodone/APAP 5-325 [[place] 1 each PO Q4HR PRN #12 tablet 08/21/18 Unknown Rx 5/325] Ibuprofen [Motrin] 600 mg PO Q8H PRN #20 tablet 08/21/18 Unknown Rx Ondansetron [Zofran Odt] 4 mg PO Q8HR PRN #20 tab.rapdis 01/08/19 Unknown Rx Sulfamethoxazole/Trimethoprim 1 each PO BID #6 tablet 01/08/19 Unknown Rx [Bactrim DS TAB] Amlodipine Besylate [Norvasc] 5 mg PO DAILY #30 tablet 01/29/19 Unknown Rx Ketorolac [Toradol] 10 mg PO Q6H PRN #12 tablet 01/29/19 Unknown Rx Ketorolac [Toradol] 10 mg PO Q6H PRN #12 tablet 01/29/19 Unknown Rx Ondansetron [Zofran Odt] 4 mg PO Q8HR #10 tab.rapdis 01/29/19 Unknown Rx ED Physical Exam - General Limitations: No Limitations General appearance: alert, in no apparent distress - Head Head exam: Present: atraumatic, normocephalic - Eye Eye exam: Present: normal appearance, PERRL, EOMI - ENT ENT exam: Present: mucous membranes moist - Neck Neck exam: Present: normal inspection - Respiratory Respiratory exam: Present: normal lung sounds bilaterally. Absent: respiratory distress, wheezes, rales, rhonchi - Cardiovascular Cardiovascular Exam: Present: regular rate, normal rhythm, normal heart sounds. Absent: systolic murmur, diastolic murmur, rubs, gallop - GI/Abdominal GI/Abdominal exam: Present: soft, normal bowel sounds. Absent: distended, tenderness, guarding, rebound - Extremities Exam Extremities exam: Present: normal inspection - Back Exam Back exam: Present: normal inspection - Neurological Exam Neurological exam: Present: alert, oriented X3 - Psychiatric Psychiatric exam: Present: normal affect, normal mood - Skin Skin exam: Present: warm, dry, intact, normal color. Absent: rash ED Course Vital Signs 01/29/19 13:47 Temperature 98.3 F Pulse Rate 70 Respiratory 16 Rate Blood Pressure 154/99 O2 Sat by Pulse 100 Oximetry ED Medical Decision Making - Medical Decision Making She was hydrated and given antiemetics and pain meds. Headache is improving at the time of discharge. Patient will be started on blood pressure medicines patient will be given follow-up with primary care. Critical care attestation.: If time is entered above; I have spent that time in minutes in the direct care of this critically ill patient, excluding procedure time. ED Disposition Clinical Impression: Hypertensive urgency Migraine with acute onset aura Qualifiers: Status migrainosus presence: without status migrainosus Intractability: not intractable Qualified Code(s): G43.109 - Migraine with aura, not intractable, without status migrainosus Disposition: DC-01 TO HOME OR SELFCARE Is pt being admited?: No Does the pt Need Aspirin: No Condition: Stable Instructions: Hypertension (ED), Migraine Headache (ED) Referrals: OBDULIA CHOE MD [Primary Care Provider] - 3-5 Days Time of Disposition: 16:22
== END 2019-01-29 16:50 | disposition home or self-care (01) ==
LOC: ED 13:33
DX: G43.109 Migraine with aura, not intractable, without status migrainosus (principal); I16.0 Hypertensive urgency; F17.200 Nicotine dependence, unspecified, uncomplicated; I10 Essential (primary) hypertension; E11.9 Type 2 diabetes mellitus without complications; J45.909 Unspecified asthma, uncomplicated; Z91.040 Latex allergy status; Z88.6 Allergy status to analgesic agent
CPT/HCPCS: J1885; J2270; J2405; J7030; 96374; 96375

== ENCOUNTER 2019-07-20 13:04 | Emergency (ER) | payer SELFPAY ==
--- NOTE | 2019-07-20 13:59 | Event Note ---
ED Screening Note ED Screening Note: This initial assessment/diagnostic orders/clinical plan/treatment(s) is/are subject to change based on patients health status, clinical progression and re- assessment by fellow clinical providers in the ED. Further treatment and workup at subsequent clinical providers discretion. Patient/guardian urged not to elope from the ED as their condition may be serious if not clinically assessed and managed. Initial orders include: c/o cough and sob, denies chest pain fever n/v.
--- NOTE | 2019-07-20 14:28 | XRay Report ---
CHEST 2 VIEWS INDICATION: MAIN: cough, sob; Pt states she has been coughing and sob for one month. Pt states L ankle is hurting . Hx of sprain but more pain today. . COMPARISON: Chest x-ray from 08/21/2017 FINDINGS: Support devices: None. Heart: Within normal limits. Lungs/pleura: No acute air space or interstitial disease. No pneumothorax. Additional findings: None. IMPRESSION: 1. No acute findings. Signer Name: Boom Kasper MD Signed: 07/20/2019 2:24 PM Workstation Name: [id number]
[2019-07-20] MEDS ORDERED: IPRATROPIUM 0.02% NEBU 2.5 ML IH ONE (18:17)
[2019-07-20] MEDS ORDERED: ALBUTEROL 2.5 MG/3 ML NEBU IH ONE (18:17)
--- NOTE | 2019-07-20 18:23 | Emergency Department Report ---
HPI - General Chief Complaint: Dyspnea/Respdistress Time Seen by Provider: 07/20/19 13:52 - HPI HPI: Room 41 The pt is a 38 y/o M p/w a cc of cough and SOB. The pt states she's had a cough [id number] of yellow/brown sputum x 1.5 months. The pt admits to waking up in the middle of the night SOB having to sit up before improving. The pt also c/o DUNCAN. Pt denies fever or sick contacts. ED Past Medical Hx - Past Medical History Previous Medical History?: Yes Hx Hypertension: Yes (BORDERLINE) Hx Diabetes: Yes (BORDERLINE) Hx Asthma: Yes Additional medical history: PERICARDITITS 2001/ECZEMA, Carpal Tunnel Syndrome, left ankle sprain 2011 - Surgical History Past Surgical History?: Yes Additional Surgical History: C SECTION. HERNIA X 2 - Family History Family history: no significant - Social History Smoking Status: Current Every Day Smoker Substance Use Type: None (denies illicit drug use) - Medications Home Medications: Home Medications Medication Instructions Recorded Confirmed Last Taken Type Fluticasone [Flonase] 1 spray NS QDAY #1 bottle 10/20/16 Unknown Rx Ibuprofen [Motrin] 600 mg PO Q8H PRN #15 tablet 10/20/16 Unknown Rx Loratadine [Claritin] 10 mg PO DAILY #14 tablet 10/20/16 Unknown Rx Nitrofurantoin [place]/M-Cryst 100 mg PO Q12HR #14 capsule 10/20/16 Unknown Rx [Macrobid CAP] Acetaminophen [Acetaminophen TAB] 1,000 mg PO Q6HR PRN #60 tablet 02/09/17 Unknown Rx Metoclopramide [Reglan] 10 mg PO TID PRN #30 tab 02/09/17 Unknown Rx diphenhydrAMINE [Benadryl CAP] 25 mg PO Q6HR PRN #30 capsule 02/09/17 Unknown Rx Azithromycin [Zithromax Z-RAMESH] 250 mg PO DAILY #6 tablet 08/21/17 Unknown Rx Benzonatate [Tessalon Perle] 100 mg PO Q6H PRN #15 capsule 08/21/17 Unknown Rx Ibuprofen [Motrin] 600 mg PO Q8H PRN #30 tablet 08/21/17 Unknown Rx Cyclobenzaprine [Flexeril] 10 mg PO BID PRN #20 tablet 02/01/18 Unknown Rx Menthol/Camphor [[place] 1 applic TP TID PRN #1 tube 02/01/18 Unknown Rx Ointment] Naproxen [Naprosyn] 500 mg PO BID PRN #30 tablet 02/01/18 Unknown Rx Clindamycin [Clindamycin CAP] 300 mg PO Q8H 7 Days cap 08/21/18 Unknown Rx HYDROcodone/APAP 5-325 [[place] 1 each PO Q4HR PRN #12 tablet 08/21/18 Unknown Rx 5/325] Ibuprofen [Motrin] 600 mg PO Q8H PRN #20 tablet 08/21/18 Unknown Rx Ondansetron [Zofran Odt] 4 mg PO Q8HR PRN #20 tab.rapdis 01/08/19 Unknown Rx Sulfamethoxazole/Trimethoprim 1 each PO BID #6 tablet 01/08/19 Unknown Rx [Bactrim DS TAB] Amlodipine Besylate [Norvasc] 5 mg PO DAILY #30 tablet 01/29/19 Unknown Rx Ketorolac [Toradol] 10 mg PO Q6H PRN #12 tablet 01/29/19 Unknown Rx Ketorolac [Toradol] 10 mg PO Q6H PRN #12 tablet 01/29/19 Unknown Rx Ondansetron [Zofran Odt] 4 mg PO Q8HR #10 tab.rapdis 01/29/19 Unknown Rx ALBUTEROL Inhaler (OR & NICU) 2 puff IH QID PRN #8.5 gram 07/20/19 Unknown Rx [ProAir HFA Inhaler] Azithromycin [Zithromax Z-RAMESH] 0 mg PO DAILY #6 tab 07/20/19 Unknown Rx Benzonatate [Tessalon Perles] 100 mg PO Q8HR #30 capsule 07/20/19 Unknown Rx Prednisone [predniSONE 10 mg 10 mg PO .TAPER #1 tab.ds.pk 07/20/19 Unknown Rx (6-Day Pack, 21 Tabs)] ED Review of Systems ROS: Stated complaint: SOB/LFT ANKLE PAIN/COUGH Other details as noted in HPI Constitutional: denies: fever Eyes: denies: eye pain ENT: denies: throat pain Respiratory: cough, orthopnea, shortness of breath, SOB with exertion Cardiovascular: denies: chest pain Endocrine: no symptoms reported Gastrointestinal: denies: abdominal pain Genitourinary: denies: dysuria Musculoskeletal: denies: back pain Neurological: denies: headache Physical Exam - Physical Exam Vital Signs: Vital Signs 07/20/19 07/20/19 13:48 18:16 Temperature 98 F 98.7 F Pulse Rate 87 77 Respiratory 18 16 Rate Blood Pressure 122/81 Blood Pressure 130/60 [Left] O2 Sat by Pulse 98 100 Oximetry Physical Exam: GEN: WD WN HEENT: NCAT, EOMI NECK:Trachea midline, no stridor CV: rrr no m/r/g Pulm: wheezing and rhonchi bilat. no resp distress ABD: s/nt/nd +BS Neuro: GCS 15 SKIN: no diaphoresis MS: no evidence of acute injury ED Course Vital Signs 07/20/19 07/20/19 13:48 18:16 Temperature 98 F 98.7 F Pulse Rate 87 77 Respiratory 18 16 Rate Blood Pressure 122/81 Blood Pressure 130/60 [Left] O2 Sat by Pulse 98 100 Oximetry - Reevaluation(s) Reevaluation #1: 07/20/19 19:44 Patient states she feels improved ED Medical Decision Making - Lab Data Result diagrams: 07/20/19 18:35 07/20/19 18:35 Laboratory Tests 07/20/19 07/20/19 07/20/19 18:26 18:35 18:35 WBC 8.1 RBC 4.92 Hgb 12.6 Hct 38.4 MCV 78 L MCH 26 L MCHC 33 RDW 16.7 H Plt Count 334 Lymph % (Auto) 50.3 H [place] % (Auto) 9.2 H Eos % (Auto) 2.7 Baso % (Auto) 1.1 Lymph # 4.1 [place] # 0.7 Eos # 0.2 Baso # 0.1 Seg Neutrophils % 36.7 L Seg Neutrophils # 3.0 Sodium Potassium Chloride Carbon Dioxide Anion Gap BUN Creatinine Estimated GFR BUN/Creatinine Ratio Glucose Calcium Total Creatine Kinase 246 H CK-MB (CK-2) 2.4 CK-MB (CK-2) Rel Index 0.9 Troponin T < 0.010 NT-Pro-B Natriuret Pep < 5 HCG, Qual Negative 07/20/19 18:35 WBC RBC Hgb Hct MCV MCH MCHC RDW Plt Count Lymph % (Auto) [place] % (Auto) Eos % (Auto) Baso % (Auto) Lymph # [place] # Eos # Baso # Seg Neutrophils % Seg Neutrophils # Sodium 136 L Potassium 4.3 Chloride 100.8 Carbon Dioxide 22 Anion Gap 18 BUN 13 Creatinine 0.8 Estimated GFR > 60 BUN/Creatinine Ratio 16 Glucose 86 Calcium 9.0 Total Creatine Kinase CK-MB (CK-2) CK-MB (CK-2) Rel Index Troponin T NT-Pro-B Natriuret Pep HCG, Qual - Radiology Data Radiology results: report reviewed (chest x-ray), image reviewed (chest x-ray) interpreted by me: Chest x-ray-no focal infiltrates, no pneumothorax [facility] [address] [place] [address] XRay Report Signed Patient: TEAGAN COLON MR#: [id number] : 1980 Acct:[id number] Age/Sex: 38 / F ADM Date: 07/20/19 Loc: ED Attending Dr: Ordering Physician: JONATAN LYONS Date of Service: 07/20/19 Procedure(s): XR chest routine 2V Accession Number(s): [id number] cc: JONATAN LYONS Fluoro Time In Minutes: CHEST 2 VIEWS INDICATION: MAIN: cough, sob; Pt states she has been coughing and sob for one month. Pt states L ankle is hurting. Hx of sprain but more pain today. . COMPARISON: Chest x-ray from 08/21/2017 FINDINGS: Support devices: None. Heart: Within normal limits. Lungs/pleura: No acute air space or interstitial disease. No pneumothorax. Additional findings: None. IMPRESSION: 1. No acute findings. Signer Name: Boom Kasper MD Signed: 07/20/2019 2:24 PM Workstation Name: [id number] Transcribed By: JW Dictated By: Boom Kasper MD Electronically Authenticated By: Boom Kasper MD Signed Date/Time: 07/20/191423 DD/ 23 TD/TT: - Differential Diagnosis pneumonia, bronchitis, COPD, CHF, Critical care attestation.: If time is entered above; I have spent that time in minutes in the direct care of this critically ill patient, excluding procedure time. ED Disposition Clinical Impression: Acute bronchitis Disposition: DC-01 TO HOME OR SELFCARE Is pt being admited?: No Does the pt Need Aspirin: No Condition: Stable Instructions: Acute Bronchitis (ED) Additional Instructions: Return to the emergency department should you develop worsening symptoms, inability to tolerate food or liquids, high fever or any other concerns Prescriptions: Prednisone [predniSONE 10 mg (6-Day Pack, 21 Tabs)] 10 mg PO .TAPER #1 tab.ds.pk ALBUTEROL Inhaler (OR & NICU) [ProAir HFA Inhaler] 2 puff IH QID PRN #8.5 gram PRN Reason: Shortness Of Breath Benzonatate [Tessalon Perles] 100 mg PO Q8HR #30 capsule Azithromycin [Zithromax Z-RAMESH] 0 mg PO DAILY #6 tab Referrals: [facility] [Outside] - 3-5 Days Time of Disposition: 19:47
[2019-07-20 19:10] LABS: Basophils # (Auto) 0.1 K/mm3 (0.0-0.1); Basophils % (Auto) 1.1 % (0.0-1.8); Eosinophils # (Auto) 0.2 K/mm3 (0.0-0.4); Eosinophils % (Auto) 2.7 % (0.0-4.3); Hematocrit 38.4 % (30.3-42.9); Hemoglobin 12.6 gm/dl (10.1-14.3); Lymphocytes # (Auto) 4.1 K/mm3 (1.2-5.4); Lymphocytes % (Auto) 50.3 % (13.4-35.0); Mean Corpuscular HGB Conc 33 % (30-34); Mean Corpuscular Volume 78 fl (79-97); Monocytes # (Auto) 0.7 K/mm3 (0.0-0.8); Monocytes % (Auto) 9.2 % (0.0-7.3); Platelet Count 334 K/mm3 (140-440); Red Blood Count 4.92 M/mm3 (3.65-5.03); Red Cell Distribution Width 16.7 % (13.2-15.2)
[2019-07-20 19:28] LABS: Creatine Kinase MB 2.4 ng/mL (0.0-4.0)
[2019-07-20 19:34] LABS: BUN/Creatinine Ratio 16; Blood Urea Nitrogen 13 mg/dL (7-17); Hemolysis Index 11
[2019-07-21 02:05] VITALS: BP 115/92
== END 2019-07-20 20:05 | disposition home or self-care (01) ==
LOC: ED 13:04
DX: J20.9 Acute bronchitis, unspecified (principal); I10 Essential (primary) hypertension; F17.200 Nicotine dependence, unspecified, uncomplicated; Z79.899 Other long term (current) drug therapy
CPT/HCPCS: 36415; 71046; 80048; 82550; 82553; 83880; 84484; 84703; 85025; 94640

== ENCOUNTER 2019-09-10 07:30 | Emergency (ER) | payer SELFPAY ==
[2019-09-10 08:27] LABS: Bacteria,Urine 3+ /HPF (Negative); Bilirubin,Urine NEG (Negative); Blood,Urine MOD (Negative); Color,Urine Yellow (Yellow); Mucus,Urine 1+ /HPF; Protein,Urine <15 mg/dL mg/dL (Negative); Urobilinogen,Urine < 2.0 mg/dL (<2.0)
[2019-09-10 08:28] LABS: HCG Qualitative,Urine Negative (Negative)
--- NOTE | 2019-09-10 10:14 | Emergency Department Report ---
ED Abdominal Pain HPI - General Chief Complaint: Abdominal Pain Stated Complaint: ABD PAIN Time Seen by Provider: 09/10/19 10:14 Source: EMS Mode of arrival: Ambulatory Limitations: No Limitations - History of Present Illness Initial Comments: 39 yo comes to ER with suprapubic pain. Thinks she has a UTI. Has had before. No fever or chills. No back pain. No vag dc or bleeding. Has no pcp. Not concerned for STI MD Complaint: abdominal pain -: Sudden, days(s) (2) Location: suprapubic Quality: aching Consistency: constant Improves With: nothing Worsens With: nothing Associated Symptoms: denies other symptoms - Related Data Previous Rx's Medication Instructions Recorded Last Taken Type Fluticasone [Flonase] 1 spray NS QDAY #1 bottle 10/20/16 Unknown Rx Ibuprofen [Motrin] 600 mg PO Q8H PRN #15 tablet 10/20/16 Unknown Rx Loratadine (Nf) [Claritin] 10 mg PO DAILY #14 tablet 10/20/16 Unknown Rx Nitrofurantoin [place]/M-Cryst 100 mg PO Q12HR #14 capsule 10/20/16 Unknown Rx [Macrobid CAP] Acetaminophen [Acetaminophen TAB] 1,000 mg PO Q6HR PRN #60 tablet 02/09/17 Unknown Rx Metoclopramide [Reglan] 10 mg PO TID PRN #30 tab 02/09/17 Unknown Rx diphenhydrAMINE [Benadryl CAP] 25 mg PO Q6HR PRN #30 capsule 02/09/17 Unknown Rx Azithromycin [Zithromax Z-RAMESH] 250 mg PO DAILY #6 tablet 08/21/17 Unknown Rx Benzonatate [Tessalon Perle] 100 mg PO Q6H PRN #15 capsule 08/21/17 Unknown Rx Ibuprofen [Motrin] 600 mg PO Q8H PRN #30 tablet 08/21/17 Unknown Rx Cyclobenzaprine [Flexeril] 10 mg PO BID PRN #20 tablet 02/01/18 Unknown Rx Menthol/Camphor [[place] 1 applic TP TID PRN #1 tube 02/01/18 Unknown Rx Ointment] Naproxen [Naprosyn] 500 mg PO BID PRN #30 tablet 02/01/18 Unknown Rx Clindamycin [Clindamycin CAP] 300 mg PO Q8H 7 Days cap 08/21/18 Unknown Rx HYDROcodone/APAP 5-325 [[place] 1 each PO Q4HR PRN #12 tablet 08/21/18 Unknown Rx 5/325] Ibuprofen [Motrin] 600 mg PO Q8H PRN #20 tablet 08/21/18 Unknown Rx Ondansetron [Zofran Odt] 4 mg PO Q8HR PRN #20 tab.rapdis 01/08/19 Unknown Rx Sulfamethoxazole/Trimethoprim 1 each PO BID #6 tablet 01/08/19 Unknown Rx [Bactrim DS TAB] Amlodipine Besylate [Norvasc] 5 mg PO DAILY #30 tablet 01/29/19 Unknown Rx Ketorolac [Toradol] 10 mg PO Q6H PRN #12 tablet 01/29/19 Unknown Rx Ketorolac [Toradol] 10 mg PO Q6H PRN #12 tablet 01/29/19 Unknown Rx Ondansetron [Zofran Odt] 4 mg PO Q8HR #10 tab.rapdis 01/29/19 Unknown Rx Albuterol INH(or & Nicu Only) 2 puff IH QID PRN #8.5 gram 07/20/19 Unknown Rx [ProAir HFA Inhaler] Azithromycin [Zithromax Z-RAMESH] 0 mg PO DAILY #6 tab 07/20/19 Unknown Rx Benzonatate [Tessalon Perles] 100 mg PO Q8HR #30 capsule 07/20/19 Unknown Rx Prednisone [predniSONE 10 mg 10 mg PO .TAPER #1 tab.ds.pk 07/20/19 Unknown Rx (6-Day Pack, 21 Tabs)] Ibuprofen [Motrin] 800 mg PO Q8HR PRN #30 tablet 09/10/19 Unknown Rx Sulfamethoxazole/Trimethoprim 1 each PO BID #10 tablet 09/10/19 Unknown Rx [Bactrim DS TAB] Allergies Allergy/AdvReac Type Severity Reaction Status Date / Time latex Allergy Rash Verified 02/09/17 12:13 tramadol Allergy Shortness Verified 02/09/17 12:13 of Breath ED Review of Systems ROS: Stated complaint: ABD PAIN Other details as noted in HPI Comment: All other systems reviewed and negative ED Past Medical Hx - Past Medical History Previous Medical History?: Yes Hx Hypertension: Yes (BORDERLINE) Hx Diabetes: Yes (BORDERLINE) Hx Asthma: Yes Additional medical history: PERICARDITITS 2001/ECZEMA, Carpal Tunnel Syndrome, left ankle sprain 2012 - Surgical History Past Surgical History?: Yes Additional Surgical History: C SECTION. HERNIA X 2 - Social History Smoking Status: Current Every Day Smoker Substance Use Type: None - Medications Home Medications: Home Medications Medication Instructions Recorded Confirmed Last Taken Type Fluticasone [Flonase] 1 spray NS QDAY #1 bottle 10/20/16 Unknown Rx Ibuprofen [Motrin] 600 mg PO Q8H PRN #15 tablet 10/20/16 Unknown Rx Loratadine (Nf) [Claritin] 10 mg PO DAILY #14 tablet 10/20/16 Unknown Rx Nitrofurantoin [place]/M-Cryst 100 mg PO Q12HR #14 capsule 10/20/16 Unknown Rx [Macrobid CAP] Acetaminophen [Acetaminophen TAB] 1,000 mg PO Q6HR PRN #60 tablet 02/09/17 Unknown Rx Metoclopramide [Reglan] 10 mg PO TID PRN #30 tab 02/09/17 Unknown Rx diphenhydrAMINE [Benadryl CAP] 25 mg PO Q6HR PRN #30 capsule 02/09/17 Unknown Rx Azithromycin [Zithromax Z-RAMESH] 250 mg PO DAILY #6 tablet 08/21/17 Unknown Rx Benzonatate [Tessalon Perle] 100 mg PO Q6H PRN #15 capsule 08/21/17 Unknown Rx Ibuprofen [Motrin] 600 mg PO Q8H PRN #30 tablet 08/21/17 Unknown Rx Cyclobenzaprine [Flexeril] 10 mg PO BID PRN #20 tablet 02/01/18 Unknown Rx Menthol/Camphor [[place] 1 applic TP TID PRN #1 tube 02/01/18 Unknown Rx Ointment] Naproxen [Naprosyn] 500 mg PO BID PRN #30 tablet 02/01/18 Unknown Rx Clindamycin [Clindamycin CAP] 300 mg PO Q8H 7 Days cap 08/21/18 Unknown Rx HYDROcodone/APAP 5-325 [[place] 1 each PO Q4HR PRN #12 tablet 08/21/18 Unknown Rx 5/325] Ibuprofen [Motrin] 600 mg PO Q8H PRN #20 tablet 08/21/18 Unknown Rx Ondansetron [Zofran Odt] 4 mg PO Q8HR PRN #20 tab.rapdis 01/08/19 Unknown Rx Sulfamethoxazole/Trimethoprim 1 each PO BID #6 tablet 01/08/19 Unknown Rx [Bactrim DS TAB] Amlodipine Besylate [Norvasc] 5 mg PO DAILY #30 tablet 01/29/19 Unknown Rx Ketorolac [Toradol] 10 mg PO Q6H PRN #12 tablet 01/29/19 Unknown Rx Ketorolac [Toradol] 10 mg PO Q6H PRN #12 tablet 01/29/19 Unknown Rx Ondansetron [Zofran Odt] 4 mg PO Q8HR #10 tab.rapdis 01/29/19 Unknown Rx Albuterol INH(or & Nicu Only) 2 puff IH QID PRN #8.5 gram 07/20/19 Unknown Rx [ProAir HFA Inhaler] Azithromycin [Zithromax Z-RAMESH] 0 mg PO DAILY #6 tab 07/20/19 Unknown Rx Benzonatate [Tessalon Perles] 100 mg PO Q8HR #30 capsule 07/20/19 Unknown Rx Prednisone [predniSONE 10 mg 10 mg PO .TAPER #1 tab.ds.pk 07/20/19 Unknown Rx (6-Day Pack, 21 Tabs)] Ibuprofen [Motrin] 800 mg PO Q8HR PRN #30 tablet 09/10/19 Unknown Rx Sulfamethoxazole/Trimethoprim 1 each PO BID #10 tablet 09/10/19 Unknown Rx [Bactrim DS TAB] ED Physical Exam - General Limitations: No Limitations General appearance: alert, in no apparent distress - Head Head exam: Present: atraumatic, normocephalic - Eye Eye exam: Present: normal appearance - ENT ENT exam: Present: mucous membranes moist - Neck Neck exam: Present: normal inspection - Respiratory Respiratory exam: Present: normal lung sounds bilaterally. Absent: respiratory distress - Cardiovascular Cardiovascular Exam: Present: regular rate, normal rhythm. Absent: systolic murmur, diastolic murmur, rubs, gallop - GI/Abdominal GI/Abdominal exam: Present: soft, normal bowel sounds - Extremities Exam Extremities exam: Present: normal inspection - Back Exam Back exam: Present: normal inspection - Neurological Exam Neurological exam: Present: alert, oriented X3 - Psychiatric Psychiatric exam: Present: normal affect, normal mood - Skin Skin exam: Present: warm, dry, intact, normal color. Absent: rash ED Course Vital Signs 09/10/19 07:37 Temperature 98.4 F Pulse Rate 96 H Respiratory 16 Rate Blood Pressure 118/69 O2 Sat by Pulse 100 Oximetry ED Medical Decision Making - Medical Decision Making Vital Signs 09/10/19 07:37 Temperature 98.4 F Pulse Rate 96 H Respiratory 16 Rate Blood Pressure 118/69 O2 Sat by Pulse 100 Oximetry Lab Results 09/10/19 Range/Units Unknown Urine Color Yellow (Yellow) Urine Turbidity Slightly-cloudy (Clear) Urine pH 6.0 (5.0-7.0) Ur Specific [place] 1.016 (1.003-1.030) Urine Protein <15 mg/dl (Negative) mg/dL Urine Glucose (UA) Neg (Negative) mg/dL Urine Ketones Neg (Negative) mg/dL Urine Blood Mod (Negative) Urine Nitrite Pos (Negative) Urine Bilirubin Neg (Negative) Urine Urobilinogen < 2.0 (<2.0) mg/dL Ur Leukocyte Esterase Tr (Negative) Urine WBC (Auto) 12.0 H (0.0-6.0) /HPF Urine RBC (Auto) 96.0 (0.0-6.0) /HPF U Epithel Cells (Auto) 2.0 (0-13.0) /HPF Urine Bacteria (Auto) 3+ (Negative) /HPF Urine Mucus 1+ /HPF Urine HCG, Qual Negative (Negative) medicated in ER dc home with bactrum and pcp follow up referrals given - Differential Diagnosis uti Critical care attestation.: If time is entered above; I have spent that time in minutes in the direct care of this critically ill patient, excluding procedure time. ED Disposition Clinical Impression: UTI (urinary tract infection) Disposition: DC-01 TO HOME OR SELFCARE Is pt being admited?: No Does the pt Need Aspirin: No Condition: Stable Instructions: Urinary Tract Infection in Women (ED) Additional Instructions: hydrate well meds as ordered follow up with pcp next week to be sure this goes away referral below Prescriptions: Sulfamethoxazole/Trimethoprim [Bactrim DS TAB] 1 each PO BID #10 tablet Ibuprofen [Motrin] 800 mg PO Q8HR PRN #30 tablet PRN Reason: Pain, Moderate (4-6) Referrals: CRISS PORTER MD [Staff Physician] - 3-5 Days Time of Disposition: 10:23
[2019-09-10] MEDS ORDERED: IBUPROFEN 800 MG TAB PO ONE (10:24)
[2019-09-10] MEDS ORDERED: SULFAMETHOXAZOLE/TRIMETHOPRIM 800/160MG DS TAB PO ONE (10:24)
[2019-09-10 10:56] VITALS: BP 120/74
== END 2019-09-10 10:55 | disposition home or self-care (01) ==
LOC: ED 07:30
DX: N39.0 Urinary tract infection, site not specified (principal); E11.9 Type 2 diabetes mellitus without complications; J45.909 Unspecified asthma, uncomplicated; F17.200 Nicotine dependence, unspecified, uncomplicated; Z79.899 Other long term (current) drug therapy; Z91.040 Latex allergy status; Z88.8 Allergy status to other drugs, medicaments and biological substances
CPT/HCPCS: 81001; 81025; 87076; 87086; 87186